=== PATIENT | female | born 1990 | race Hispanic/Latino ===

== ENCOUNTER 2021-04-22 02:03 | Emergency (ER) | payer SELFPAY ==
[~2021-04-22] VITALS: Ht 154.9 cm; Wt 63.5 kg
[2021-04-22] MEDS ORDERED: DICYCLOMINE HCL20 MG PO (02:26)
[2021-04-22] MEDS ORDERED: ONDANSETRON ODT4 MG PO (02:26)
[2021-04-22] MEDS ORDERED: KETOROLAC TROMETHAMINE 60 MG/2 ML VIAL IM ONE (02:30)
[2021-04-22] MEDS ORDERED: ONDANSETRON HCL 4 MG ORAL DISINTEGRATING TAB PO ONE (02:30)
[2021-04-22] MEDS ORDERED: DONNATAL/LIDOCAINE/MAALOX 30 ML SUSP PO ONE (02:30)
[2021-04-22] MEDS ORDERED: DICYCLOMINE HCL 20 MG/2 ML VIAL IM ONE (02:30)
[2021-04-22] MEDS ORDERED: BELLADONNA ALK/PHENOBARBITAL 5 ML UDC ONE (02:33)
[2021-04-22] MEDS ORDERED: LIDOCAINE VISC 2% SOLN 15 ML UDC ONE (02:33)
[2021-04-22] MEDS ORDERED: KETOROLAC TROMETHAMINE 30 MG/ML VIAL ONE (02:34)
[2021-04-22] MEDS ORDERED: MAGNESIUM/ALUMINUM/SIMETHICONE 30 ML UDC ONE (02:34)
== END 2021-04-22 03:13 | disposition home or self-care (01) ==
LOC: ER 02:21
DX: R10.13 Epigastric pain (principal); K83.9 Disease of biliary tract, unspecified; R11.2 Nausea with vomiting, unspecified
CPT/HCPCS: 99283; J0500; J1885; Q0162